=== PATIENT | female | born 1995 | race Asian ===

== ENCOUNTER 2016-08-17 08:32 | Emergency (ER) | payer OTHER ==
[2016-08-17] MEDS ORDERED: KETOROLAC TROMETHAMINE 30 MG/ML VIAL IV ONE (08:51)
[2016-08-17] MEDS ORDERED: LORazepam 2 MG/ML DISP.SYRIN IV ONE (08:59)
[2016-08-17] MEDS ORDERED: LORazepam 2 MG/ML DISP.SYRIN ONE (09:01)
[2016-08-17] MEDS ORDERED: KETOROLAC TROMETHAMINE 30 MG/ML VIAL ONE (09:01)
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
[2016-08-17] MEDS ORDERED: oxyCODONE HCL/ACETAMINOPHEN 1 TAB TABLET ONE (10:07)
[2016-08-17] MEDS ORDERED: oxyCODONE HCL/ACETAMINOPHEN 1 TAB TABLET PO ONE (10:09)
[2016-08-17 11:45] VITALS: BP 146/77
== END 2016-08-17 12:45 | disposition home or self-care (01) ==
LOC: ER 08:32
PROC: 0HQ1XZZ Repair Face Skin, External Approach (ICD-10-PCS; principal; 2016-08-17)
DX: S01.112A Laceration without foreign body of left eyelid and periocular area, initial encounter (principal); S00.83XA Contusion of other part of head, initial encounter; S13.9XXA Sprain of joints and ligaments of unspecified parts of neck, initial encounter; F17.210 Nicotine dependence, cigarettes, uncomplicated; V49.9XXA Car occupant (driver) (passenger) injured in unspecified traffic accident, initial encounter; Y92.411 Interstate highway as the place of occurrence of the external cause